=== PATIENT | male | born 1995 | race Caucasian/White ===

== ENCOUNTER 2017-07-06 19:03 | Emergency (ER) | payer BC, OTHER ==
--- NOTE | 2017-07-06 20:08 | ERPHSYRPT ---
- History of Present Illness Time Seen by Provider: 07/06/17 19:58 Source: patient Exam Limitations: no limitations Patient Subjective Stated Complaint: pt states he has been having pain in his lt lower jaw with swelling. pain x1 week, swelling for approx 2 days Triage Nursing Assessment: pt alert and oriented. pt ambulatory with steady gait noted, respirations nonlabored with lungs cta. skin pink warm and dry. pt denies difficulty swallowing or breathing. swelling and tenderness noted to lt lower jaw. Physician History: The patient is a 22-year-old male with his girlfriend complaining that he has had pain in his left lower jaw with swelling for a week. The pain is been going on for one week. The swelling has gotten worse in the last 2 days. 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 He is unable to take any time off. His past medical history is unremarkable. Timing/Duration: gradual onset, weeks (1) Severity: moderate ENT Location: dental Prearrival Treatment: no prearrival treatment Associated Symptoms: facial pain/swelling, tooth pain, No drooling Allergies/Adverse Reactions: No Known Drug Allergies Allergy (Verified 07/06/17 19:20) Home Medications: No Home Meds [No Home Meds] 1 [facility] UD 11/12/15 [History] Hx Tetanus, Diphtheria Vaccination/Date Given: Yes (2015) Hx Influenza Vaccination/Date Given: No Hx Pneumococcal Vaccination/Date Given: No Immunizations Up to Date: Yes - Review of Systems Constitutional: No Fever, No Chills Eyes: No Symptoms Ears, Nose, & Throat: Mouth Pain Respiratory: No Cough, No Dyspnea Cardiac: No Chest Pain, No Edema, No Syncope Abdominal/Gastrointestinal: No Abdominal Pain, No Nausea, No Vomiting, No Diarrhea Genitourinary Symptoms: No Dysuria Musculoskeletal: No Back Pain, No Neck Pain Skin: No Rash Neurological: No Dizziness, No Focal Weakness, No Sensory Changes Psychological: No Symptoms Endocrine: No Symptoms Hematologic/Lymphatic: No Symptoms Immunological/Allergic: No Symptoms All Other Systems: Reviewed and Negative - Past Medical History Pertinent Past Medical History: No - Past Surgical History Past Surgical History: No - Social History Smoking Status: Never smoker Exposure to second hand smoke: No Drug Use: none Patient Lives Alone: No Significant Family History: no pertinent family hx - Nursing Vital Signs Nursing Vital Signs: Initial Vital Signs Temperature 98.6 F 07/06/17 19:11 Pulse Rate 64 07/06/17 19:11 Respiratory Rate 16 07/06/17 19:11 Blood Pressure 139/82 07/06/17 19:11 O2 Sat by Pulse Oximetry 97 07/06/17 19:11 Pain Scale Pain Intensity 10 - Physical Exam General Appearance: mild distress Eye Exam: bilateral eye: normal inspection, PERRL Ear Exam: bilateral ear: auricle normal Nasal Exam: normal inspection Throat Exam: dental tenderness (left lower anterior molar and surrounding gum tissue) Neck Exam: supple Cardiovascular/Respiratory Exam: normal breath sounds, regular rate/rhythm Abdominal Exam: non-tender, soft Neurologic Exam: alert, oriented x 3, sensation nml, No motor deficits Skin Exam: normal color, warm, dry SpO2 Interpretation: normal (he) SpO2: 97 Oxygen Delivery: Room Air - Progress Progress: unchanged Counseled pt/family regarding: diagnosis, need for follow-up - Departure Time of Disposition: 20:10 Departure Disposition: Home Clinical Impression: Dental abscess Condition: Stable Critical Care Time: No Additional Instructions: You have a dental abscess. You were given Toradol 60 mg by IM and penicillin 500 mg orally in the ER. Take penicillin 500 mg 4 times a day for 10 days. Take naproxen 500 mg 2 times a day as needed for pain. You were sent home with [place]. Take one tablet every 4-6 hours for pain. Follow-up with the dentist at your earliest convenience. Prescriptions: Naproxen 500 mg PO BID PRN #30 tablet. Penicillin V Potassium 500 mg PO QID #40 tablet
[2017-07-06] MEDS ORDERED: TORAdol 30 mg Injection ONE (20:24)
[2017-07-06] MEDS ORDERED: PEN-VEE K ONE (20:25)
[2017-07-06] MEDS ORDERED: NORCO 5/325 MG ONE (20:25)
[2017-07-06] MEDS: NORCO 5/325 MG PO ONE (20:31)
[2017-07-06] MEDS: TORAdol 30 mg Injection IM ONE (20:32)
[2017-07-06] MEDS: PEN-VEE K PO ONE (20:32)
[2017-07-06 20:53] VITALS: BP 130/82; PULSE 69; O2SAT 98
== END 2017-07-06 20:53 | disposition home or self-care (01) ==
LOC: ED 19:03
DX: K04.7 Periapical abscess without sinus (principal)
CPT/HCPCS: 96372; 99283; J1885; A9270-GY

== ENCOUNTER 2017-07-20 10:27 | Emergency (ER) | payer BC, OTHER ==
--- NOTE | 2017-07-20 12:04 | ERPHSYRPT ---
- History of Present Illness Time Seen by Provider: 07/20/17 11:55 Source: patient Exam Limitations: no limitations Patient Subjective Stated Complaint: HERE FOR PAIN TO LEFT WRIST THURSDAY Triage Nursing Assessment: PT ALERT, WALKED IN , RESP EASY, SLIGHT SWELLING TO TOP OF LEFT WRIST, NAIL BEDS PINK, STRONG RADIAL PULSE Physician History: The patient is a 22-year-old male with his complaining that he injured his left wrist while at work the [place] on Thursday. He feels like he jammed it. It was swollen over the weekend but hasn't gotten much better today. He took ibuprofen and iced it over the weekend. He states his ring finger on his left hand was slightly numb it is better now. His past medical history is unremarkable. Occurred: days ago (3) Method of Injury: direct blow Quality: constant, aching Severity of Pain-Max: moderate Severity of Pain-Current: moderate Extremities Pain Location: wrist: left Modifying Factors: Improves With: cold therapy, pain medication Associated Symptoms: none Allergies/Adverse Reactions: No Known Drug Allergies Allergy (Verified 07/20/17 10:47) Hx Tetanus, Diphtheria Vaccination/Date Given: Yes (2015) Hx Influenza Vaccination/Date Given: Yes Hx Pneumococcal Vaccination/Date Given: No Immunizations Up to Date: Yes - Review of Systems Constitutional: No Fever, No Chills Eyes: No Symptoms Ears, Nose, & Throat: No Symptoms Respiratory: No Cough, No Dyspnea Cardiac: No Chest Pain, No Edema, No Syncope Abdominal/Gastrointestinal: No Abdominal Pain, No Nausea, No Vomiting, No Diarrhea Genitourinary Symptoms: No Dysuria Musculoskeletal: Joint Pain, Joint Swelling, No Back Pain, No Neck Pain Skin: No Rash Neurological: No Dizziness, No Focal Weakness, No Sensory Changes Psychological: No Symptoms Endocrine: No Symptoms Hematologic/Lymphatic: No Symptoms Immunological/Allergic: No Symptoms All Other Systems: Reviewed and Negative - Past Medical History Pertinent Past Medical History: Yes Other Medical History: TOOTH ABCESS - Past Surgical History Past Surgical History: No - Social History Smoking Status: Never smoker Exposure to second hand smoke: No Drug Use: none Patient Lives Alone: No Significant Family History: no pertinent family hx - Nursing Vital Signs Nursing Vital Signs: Initial Vital Signs Temperature 98.3 F 07/20/17 10:41 Pulse Rate 73 07/20/17 10:41 Respiratory Rate 15 07/20/17 10:41 Blood Pressure 132/83 07/20/17 10:41 O2 Sat by Pulse Oximetry 97 07/20/17 10:41 Pain Scale Pain Intensity 9 - Physical Exam General Appearance: alert Eyes, Ears, Nose, Throat Exam: moist mucous membranes Neck Exam: non-tender, supple Cardiovascular/Respiratory Exam: chest non-tender, normal breath sounds, regular rate/rhythm, no respiratory distress Abdominal Exam: non-tender, No guarding Back Exam: normal inspection, No vertebral tenderness Shoulder Exam: normal inspection Elbow/Forearm Exam: normal inspection Wrist Exam: limited ROM, pain (left wrist) Hand Exam: normal inspection Neuro/Tendon Exam: normal sensation, normal motor functions Mental Status Exam: alert, oriented x 3, cooperative Skin Exam: normal color, warm, dry SpO2 Interpretation: normal SpO2: 97 Oxygen Delivery: Room Air - Radiology Exams Left Wrist X-ray Interpretation: Reviewed by me, Teleradiologist Report, Negative (per Dr Anne) Ordered Tests: Active Orders 24 hr Category Date Time Status WRIST (MIN 3 VIEWS) Stat Exams 07/20/17 11:43 Completed Medication Summary Discontinued Medications Generic Name Dose Route Start Last Admin Trade Name Alexq PRN Reason Stop Dose Admin Ketorolac Tromethamine 60 mg 07/20/17 12:04 07/20/17 12:10 Toradol 30 Mg Injection IM 07/20/17 12:05 60 mg STAT ONE Administration Ketorolac Tromethamine Confirm 07/20/17 12:09 Toradol 30 Mg Injection Administered 07/20/17 12:10 Dose 60 mg .ROUTE .STK-MED ONE - Progress Progress: improved Counseled pt/family regarding: diagnosis, rad results - Departure Time of Disposition: 12:20 Departure Disposition: Home Clinical Impression: Left wrist sprain Condition: Stable Critical Care Time: No Referrals: DOCTOR,NO FAMILY [Primary Care Provider] - Additional Instructions: You have jammed your left wrist. There are no broken bones in your wrist. You were given Toradol 60 mg IM in the ER. Wear the wrist splint that you bought at [employer] for protection. Take naproxen 500 mg 2 times a day as needed. You were given a one-day work excuse and you can use it if you would like. Follow- up with your primary medical doctor as needed. Prescriptions: Naproxen 500 mg PO BID PRN #30 tablet.
--- NOTE | 2017-07-20 12:06 | XRAY ---
Indication: Pain following injury. Comparison: None 3 views of the left wrist obtained. No bony, articular, or soft tissue abnormalities.
[2017-07-20] MEDS ORDERED: TORAdol 30 mg Injection ONE (12:09)
[2017-07-20] MEDS: TORAdol 30 mg Injection IM ONE (12:10)
[2017-07-20 12:34] VITALS: BP 122/79; PULSE 58; O2SAT 99
== END 2017-07-20 12:34 | disposition home or self-care (01) ==
LOC: ED 10:27
DX: S63.502A Unspecified sprain of left wrist, initial encounter (principal); W23.0XXA Caught, crushed, jammed, or pinched between moving objects, initial encounter; Y93.9 Activity, unspecified; Y92.64 Mine or pit as the place of occurrence of the external cause; Y99.0 Civilian activity done for income or pay; M25.432 Effusion, left wrist; M25.532 Pain in left wrist
CPT/HCPCS: 73110; 99283; J1885